=== PATIENT | female | born 1980 | race Caucasian/White ===

== ENCOUNTER 2021-06-01 16:08 | Emergency (ER) | payer OTHER ==
[~2021-06-01] VITALS: Ht 157.5 cm; Wt 64.4 kg
--- NOTE | 2021-06-01 16:11 | NUR ---
Placed in room 07 . Placed on cardiac catheterization technician, blood pressure machine and pulse oximeter. To gown for exam. Side rails up.
[2021-06-01 16:12] VITALS: BP_SYST 108
--- NOTE | 2021-06-01 16:20 | NUR ---
PT CAME IN FROM HOME C/O EPIGASTRIC CHEST PAIN STARTING TODAY PRIOR TO ARRIVAL. PT DENIES ANY CARDIAC HX. PT IS AAOX4, V/S STABLE, AMBULATORY WITH STEADY GAIT
[2021-06-01] MEDS ORDERED: MAG HYDROX/AL HYDROX/SIMETH 30 ML, DICYCLOMINE HCL 20 MG, LIDOCAINE VISCOUS 2% 15ML (PO... PO ONE ×3 (16:30)
--- NOTE | 2021-06-01 16:30 | NUR ---
ER DR. OSHEA AT THE BEDSIDE EXAMINING PT
[2021-06-01] MEDS ORDERED: OMEP20TA20 PO (16:45)
[2021-06-01 16:54] VITALS: BP_SYST 108
--- NOTE | 2021-06-01 17:43 | NUR ---
Patient given written and verbal discharge instructions and verbalizes understanding. ER MD discussed with patient the results and treatment provided. Patient in stable condition. ID arm band removed. Rx of PEPCID given. Patient educated on pain management and to follow up with PMD. Pain Scale 0/10. Opportunity for questions provided and answered. Medication side effect fact sheet provided.
== END 2021-06-01 16:54 | disposition home or self-care (01) ==
LOC: SED 16:08
DX: R07.9 Chest pain, unspecified (principal)
CPT/HCPCS: 93005; 99283; J2001